=== PATIENT | female | born 1970 | race Two or more races ===

== ENCOUNTER 2019-11-06 14:04 | Outpatient (CLI) | payer OTHER | END 2019-11-06 14:10 | disposition home or self-care (01) | LOC: LAB 14:04 | PROVIDERS: ATTEND Internal Medicine Hematology & Oncology | DX: D50.8 Other iron deficiency anemias (principal); I10 Essential (primary) hypertension; E55.9 Vitamin D deficiency, unspecified; D68.8 Other specified coagulation defects; E72.11 Homocystinuria; E03.8 Other specified hypothyroidism; R97.0 Elevated carcinoembryonic antigen [CEA]; R97.8 Other abnormal tumor markers; E72.12 Methylenetetrahydrofolate reductase deficiency; D51.0 Vitamin B12 deficiency anemia due to intrinsic factor deficiency; C73 Malignant neoplasm of thyroid gland ==